=== PATIENT | male | born 1995 | race Caucasian/White ===

== ENCOUNTER 2021-02-25 22:49 | Emergency (ER) | payer OTHER ==
[~2021-02-25] VITALS: Ht 172.7 cm; Wt 63.6 kg
[2021-02-25 22:59] VITALS: BP 116/79
--- NOTE | 2021-02-26 00:30 | NUR ---
PT BECOMING MORE ORIENTED, STATES HE IS FROM [facility], HERE VISITING A FRIEND. PT STATES HE HAS NO RECOLLECTION OF HOW HE GOT TO THE HOSPITAL
--- NOTE | 2021-02-26 01:23 | NUR ---
PT DISCHARGED BEFORE NURSING ASSESSMENTS DONE
== END 2021-02-26 01:23 | disposition home or self-care (01) ==
LOC: ER 22:50
DX: T40.7X1A Poisoning by cannabis (derivatives), accidental (unintentional), initial encounter (principal); F41.9 Anxiety disorder, unspecified; Y92.89 Other specified places as the place of occurrence of the external cause
CPT/HCPCS: 99283